=== PATIENT | male | born 1985 | race Caucasian/White ===

== ENCOUNTER 2021-02-06 07:02 | Emergency (ER) | payer OTHER ==
[~2021-02-06] VITALS: Ht 175.3 cm; Wt 127.9 kg
[2021-02-06] MEDS ORDERED: GUAIFENESIN 600MG/DEXTROMETHORPHAN 30MG TABSR PO ONE (07:26)
[2021-02-06] MEDS ORDERED: ONDANSETRON ODT4 MG PO (09:14)
[2021-02-06 09:22] VITALS: BP 148/86
== END 2021-02-06 09:23 | disposition home or self-care (01) ==
LOC: ER 07:04
DX: U07.1 COVID-19 (principal); R50.9 Fever, unspecified; R05 Cough; I10 Essential (primary) hypertension; M10.9 Gout, unspecified
CPT/HCPCS: 71046; 99283; U0002

== ENCOUNTER 2021-11-01 14:10 | Emergency (ER) | payer OTHER ==
[~2021-11-01] VITALS: Ht 175.3 cm; Wt 127.9 kg
[~2021-11-01 14:10] MED LIST: ONDANSETRON ODT4 MG PO
[2021-11-01] MEDS ORDERED: DOXYCYCLINE HY100 MG PO (17:55)
[2021-11-01] MEDS ORDERED: CEFTRIAXONE 500 MG VIAL IM ONE (18:00)
[2021-11-01] MEDS ORDERED: LIDOCAINE HCL 1% LOCAL INJ 20 ML VIAL ONE (18:16)
[2021-11-01 18:43] LABS: COLOR,URINE YELLOW (YELLOW); LEUKOCYTE ESTERASE ,URINE NEGATIVE (NEGATIVE)
[2021-11-01 18:44] LABS: CLARITY,URINE CLOUDY (CLEAR); KETONES,URINE NEGATIVE (NEGATIVE); NITRITE,URINE NEGATIVE (NEGATIVE); PROTEIN,URINE DIPSTICK TRACE (NEGATIVE); URINE UROBILINOGEN 0.2 mg/dL (0.2 - 1)
[2021-11-01 18:50] LABS: AMORPHOUS SEDIMENT,URINE MANY (FEW); BACTERIA,URINE MANY /HPF; EPITHELIAL CELLS,URINE FEW /LPF
== END 2021-11-01 18:12 | disposition home or self-care (01) ==
LOC: ER 14:49
DX: N50.819 Testicular pain, unspecified (principal); N43.3 Hydrocele, unspecified; I10 Essential (primary) hypertension; M10.9 Gout, unspecified
CPT/HCPCS: 76870; 81001; 93976; 99283; J0696; J2001